=== PATIENT | female | born 1960 | race Asian ===

== ENCOUNTER 2021-05-21 07:48 | Outpatient (REF) | payer BC, SELFPAY ==
--- NOTE | ~2021-05-21 | XR_ITS ---
EXAMINATION: XR TIBIA AND FIBULA, RIGHT CLINICAL INFORMATION: Infection and inflammatory reaction due to orthopedic hardware. COMPARISON: None TECHNIQUE: AP and lateral views of the right tibia and fibula were obtained. FINDINGS: Multiple screw tracks related to prior hardware within the distal fibula. No acute fibular fracture. No periosteal reaction or associated osseous erosion. Overlying soft tissue swelling. Orthopedic screws within the distal tibia without hardware fracture. No perihardware lucency to suggest loosening or infection. No acute osseous fracture. The ankle mortise is maintained. Small plantar calcaneal spur. XR/XR tibia fibula RT 2V IMPRESSION: Postsurgical changes related to prior distal fibular hardware with overlying soft tissue swelling. No radiopaque foreign body or abnormal soft tissue calcification. No associated osseous erosion or periosteal reaction. Distal tibial ORIF without evidence of hardware complication.
[2021-05-21 09:05] LABS: MANUAL DIFF FLAG NO
[2021-05-21 09:10] LABS: Basophils Percent Auto 0.6 % (0-2); Eosinophils Absolute Auto 0.2 X10*3/uL (0.0-0.4); Eosinophils Percent Auto 4.4 % (0-4); Hematocrit 39.7 % (37-47); Hemoglobin 13.1 g/dl (12.0-16.0); Imm Gran Abs Auto 0.01 X10*3/uL (0.00-0.03); Imm Gran Pct Auto 0.2 % (0.0-0.4); Lymphocytes Absolute Auto 1.4 X10*3/uL (1.2-4.9); Lymphocytes Percent Auto 26.7 % (20-40); Mean Corpuscular Volume 90.8 fL (80-98); Mean Platelet Volume 9.4 fL (9.4-12.3); Monocytes Absolute Auto 0.4 X10*3/uL (0.1-1.2); Monocytes Percent Auto 7.7 % (2-11); Neutrophils Absolute Auto 3.1 X10*3/uL (2.0-8.3); Neutrophils Percent Auto 60.4 % (45-73); Platelet Count 237 X10*3/uL (160-400); Red Blood Count 4.37 X10*6/uL (4.20-5.50); Red Cell Distribution Width 13.5 % (11.0-16.0); White Blood Count 5.2 X10*3/uL (4.8-10.8)
[2021-05-21 09:58] LABS: Erythrocyte Sedimentation Rate 16 MM/HR (0-20)
[2021-05-21 10:09] LABS: C Reactive Protein 0.65 mg/dL (< or = 0.50)
== END 2021-05-21 07:49 | disposition home or self-care (01) ==
LOC: HO.LAB 07:48
PROVIDERS: Visit Provider Surgery
DX: T84.7XXA Infection and inflammatory reaction due to other internal orthopedic prosthetic devices, implants and grafts, initial encounter (principal)
CPT/HCPCS: 36415; 73590; 85025; 85652; 86140